=== PATIENT | female | born 2000 | race African-American/Black ===

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

== ENCOUNTER 2021-03-23 03:45 | Emergency (ER) | payer OTHER, SELFPAY ==
[2021-03-23 04:51] VITALS: BP 122/77; PULSE 87; RESP 14; TEMP 36.1; O2SAT 98
--- NOTE | 2021-03-23 06:16 | ED.GENADULT ---
HPI - General Adult General Chief complaint: Upper Respiratory Infection Stated complaint: cough, runny nose Time Seen by Provider: 03/23/21 04:31 History of Present Illness HPI narrative: Patient is a 20-year-old female who presents ER with upper respiratory infection symptoms. Over the last 2 days she has had sinus congestion with cough. No fevers chills or sweats. No known sick contacts. She is not vaccinated against Covid. Her child has similar symptoms. No dyspnea. Related Data Home Medications Medication Instructions Recorded Confirmed PNV cmb#95-ferrous fumarate-FA tablet PO 05/19/20 [ Multivitamins] Allergies Allergy/AdvReac Type Severity Reaction Status Date / Time strawberry Allergy Hives Verified 03/23/21 04:58 Review of Systems Constitutional: Constitutional: Denies chills, Denies fever(s) and Denies weakness ENT: Reports nasal congestion and Denies sore throat Respiratory: Respiratory: Reports cough, Denies dyspnea and Denies wheezing Gastrointestinal: Gastrointestinal: Denies abdominal pain, Denies nausea and Denies vomiting [facility] Past Medical History Medical History (Updated 03/23/21 @ 06:20 by Vincent Robin MD) Healthy female adult Surgical History Surgical History (Updated 05/19/20 @ 22:44 by Vincent Robin MD) No history of previous surgery Social History Social History (Updated 02/23/20 @ 23:40 by Olayinka Castrejon PA-C) Smoking status: Never smoker Gender identity (if verbalized by the patient): Female Sexual Orientation (if Verbalized by the Patient): Straight or Heterosexual Exam Narrative: GENERAL: Well-appearing, well-nourished, and in no acute distress. HEAD: Normocephalic, atraumatic. ENT: Mucous membranes moist. CHEST: Clear to auscultation. No respiratory distress. HEART: Regular rate and rhythm. Normal peripheral pulses. NEURO: Alert and oriented x3. PSYCH: Normal mood and affect. Course Course Emergency Course: Patient swabbed for Covid. Discussed need for isolation until receiving results. Discharge home. Vital Signs Vital signs: Vital Signs Temperature 97 F L 03/23/21 04:51 Pulse Rate 87 03/23/21 04:51 Respiratory Rate 14 03/23/21 04:51 Blood Pressure 122/77 03/23/21 04:51 Pulse Oximetry 98 03/23/21 04:51 Temperature 97 F L 03/23/21 04:51 Pulse Rate 87 03/23/21 04:51 Respiratory Rate 14 03/23/21 04:51 Blood Pressure 122/77 03/23/21 04:51 Pulse Oximetry 98 03/23/21 04:51 Medical Decision Making Vital Signs Vital Signs: Vital Signs Temperature 97 F L 03/23/21 04:51 Pulse Rate 87 03/23/21 04:51 Respiratory Rate 14 03/23/21 04:51 Blood Pressure 122/77 03/23/21 04:51 Pulse Oximetry 98 03/23/21 04:51 Temperature 97 F L 03/23/21 04:51 Pulse Rate 87 03/23/21 04:51 Respiratory Rate 14 03/23/21 04:51 Blood Pressure 122/77 03/23/21 04:51 Pulse Oximetry 98 03/23/21 04:51 Lab Data Labs: Lab Results 03/23/21 Range/Units 05:26 SARS-CoV-2 RNA (RT-PCR) Pending Discharge Plan Discharge Clinical Impression: Person under investigation for COVID-19 Patient Disposition: Home, Self-Care Condition: Stable Instructions: Upper Respiratory Infection (ED), COVID-19 (Coronavirus Disease 2019) (ED) Additional Instructions: Self isolate until you receive a negative Covid result. If it is positive you will need to be cleared from isolation by your primary care doctor or the health department. Return the ER if you cannot breathe, you cannot keep down food or water, or you have additional concerns. Prescriptions: No Action famotidine [Pepcid] 20 mg tablet 20 mg PO BID Qty: 10 RF: 0 prochlorperazine maleate [Compazine] 10 mg tablet 10 mg PO Q8H PRN (Reason: nausea and vomiting) Qty: 7 RF: 0 PNV cmb#95-ferrous fumarate-FA [ Multivitamins] 28 mg iron- 800 mcg tablet PO RF: 0 acetaminophen 500 mg capsule
[2021-03-23 06:42] VITALS: BP 140/80; PULSE 98; RESP 14; O2SAT 99
[2021-03-23 14:05] LABS: SARS-CoV-2 RNA PCR Positive
== END 2021-03-23 06:44 | disposition home or self-care (01) ==
PROVIDERS: Emergency Provider Emergency Medicine
DX: U07.1 COVID-19 (principal)
CPT/HCPCS: 99283; C9803; U0003; U0005

== ENCOUNTER 2021-12-03 15:33 | Emergency (ER) | payer OTHER, SELFPAY ==
[2021-12-03 15:55] VITALS: BP 127/76; PULSE 94; RESP 16; TEMP 36.9; O2SAT 100
--- NOTE | 2021-12-03 15:59 | ED.GENADULT ---
HPI - General Adult General Chief complaint: Abdominal Pain Stated complaint: Abdominal Pain Time Seen by Provider: 12/03/21 15:59 Source: patient, RN notes reviewed and old records reviewed Mode of arrival: ambulatory Limitations: no limitations History of Present Illness HPI narrative: 21-year-old female presents to the [facility] with I just do not feel right. Requesting blood test. Patient denies any abdominal pain. Reports last menstrual period was on 24 November, 9 days ago but states it was not her normal period. Reports that she has taken home test which she reports is negative. Patient states that she has had some nausea without abdominal pain. No chest pain. No urinary symptoms. Related Data Allergies Allergy/AdvReac Type Severity Reaction Status Date / Time strawberry Allergy Hives Verified 12/03/21 15:50 Review of Systems Review of Systems: All systems reviewed & are unremarkable except as noted in HPI and below Constitutional: Constitutional: Reports as per HPI, Denies chills, Reports fatigue and Denies fever(s) Eyes: Eyes: Reports no additional eye complaints ENT: Reports system reviewed and no additional complaints, except as documented Cardiovascular: Cardiovascular: Reports no additional cardiovascular complaints Respiratory: Respiratory: Reports no additional respiratory complaints Gastrointestinal: Gastrointestinal: Reports as per HPI, Denies abdominal pain, Denies diarrhea, Reports nausea and Denies vomiting Musculoskeletal: Musculoskeletal: Reports no additional musculoskeletal complaints Integumentary/Breasts: Skin/Breast: Reports system reviewed and no additional complaints, except as docu Neurologic: Reports system reviewed and no additional complaints, except as documented Psychiatric: Psychiatric: Reports no additional psychiatric complaints Allergic/Immunologic: Allergic/Immunologic: Reports no additional allergic/immunologic complaints [facility] Past Medical History Medical History Healthy female adult Surgical History Surgical History No history of previous surgery Social History Social History Smoking status: Never smoker Gender identity (if verbalized by the patient): Female Sexual Orientation (if Verbalized by the Patient): Straight or Heterosexual Comments At the time of my signature, I reviewed and agree with the nursing past medical, surgical, social, and family history. There is no relevant family history pertinent to the patient complaint. Exam Const: General: healthy appearing, no acute distress and alert Nutritional Appearance: well nourished Orientation/consciousness: patient oriented x3 Limitations: no limitations HENMT: Head: normal to inspection Ears: external ears normal General nose exam: Normal external nose present Face and sinus: normal facial exam Eyes: General: appearance normal, both eyes and all related structures Pupils: Equal, round and reactive pupils present Neck: Neck: normal visual inspection, no lymphadenopathy and no meningeal signs Chest: Chest palpation & inspection: normal inspection of the chest Resp: Effort & Inspection: normal respiratory effort and no use of accessory muscles Auscultation: clear to auscultation bilaterally, no crackles, no rales, no rhonchi and no wheezes Cardio: Rate: regular rate Rhythm: regular rhythm GI: GI Palp: Yes Soft to palpation and No Tenderness to palpation present (GI) Back/Spine/Pelvis: Cervical Spine: normal cervical lordosis Thoracic/Lumbar Spine: thoracic and lumbar spine normal to inspection Skin: General skin exam: normal color Rashes: no rashes Wounds: no wounds Neuro: General: patient oriented x3, moves all extremities, no meningeal signs and no focal motor deficits Cranial nerves: Yes Equal, rou
== END 2021-12-03 16:24 | disposition home or self-care (01) ==
PROVIDERS: Emergency Provider Nurse Practitioner
DX: R11.0 Nausea (principal)
CPT/HCPCS: 99211; G0463

== ENCOUNTER 2021-12-04 15:34 | Emergency (ER) | payer OTHER, SELFPAY ==
--- NOTE | ~2021-12-04 | XR_ITS ---
EXAM: XR abdomen/kub 1V DATE: 12/04/2021 18:10 HISTORY: abd pain, NAUSEA . COMPARISON: None available. FINDINGS: The upper portion of the abdomen is not included in the [id number]. Normal bowel gas pat tern. No organomegaly. No abnormal abdominal calcification. Regional bones and soft tissues normal fo r age. IMPRESSION: Limited [id number]. No radiographic evidence of obstruction or ileus. Reviewed, dictated and finalized at location K. IMPRESSION: Limited [id number]. No radiographic evidence of obstruction or i leus.
[2021-12-04 15:38] VITALS: BP 131/67; PULSE 85; RESP 16; TEMP 37.1; O2SAT 100
--- NOTE | 2021-12-04 16:38 | PC.NURSE ---
patient denies N/V/D and states she wants a blood test to see if she is . patient states she took a test at home and it was negative.
[2021-12-04 17:26] LABS: Basophils Percent Auto 0.5 % (0.2-1.2); Eosinophils Absolute Auto 0.1 K/mm3 (0-0.3); Eosinophils Percent Auto 0.9 % (0-4.4); Hematocrit 39.2 % (37.0-47.0); Hemoglobin 13.3 g/dL (12.0-15.0); Immature Granulocyte Absolute 0.01 K/mm3 (0.00-0.031); Immature Granulocyte Percent A 0.2 % (0-0.5); Lymphocytes Absolute Auto 2.12 K/mm3 (0.9-3.2); Lymphocytes Percent Auto 37.5 % (18.3-44.2); Mean Corpuscular HGB Conc 33.9 g/dl (32-36); Mean Corpuscular Hemoglobin 28.4 pg (26-34); Mean Corpuscular Volume 83.8 fl (80-100); Monocytes Absolute Auto 0.4 K/mm3 (0.1-0.6); Monocytes Percent Auto 7.1 % (2.6-8.5); Neutrophils Percent Auto 53.8 % (45.5-73.1); Platelet Count Result 209 k/mm3 (150-375); Red Blood Count 4.68 M/mm3 (4.2-5.4); Red Cell Distribution Width 12.2 % (11.5-14.5); White Blood Count 5.7 K/mm3 (4.5-10.0)
[2021-12-04 17:27] LABS: Appearance Urine Slightly Cloudy (Clear); Bilirubin Urine Negative (Negative); Blood Urine Negative (Negative); Color Urine Yellow (Yellow); Glucose Urine UA Negative (Negative); Ketones Urine Negative (Negative); Leukocyte Esterase Ur Negative LEU/UL (Negative); Nitrate Urine Negative (Negative); Protein Urine Negative (Negative); Specific Grav Ur 1.025 (1.001-1.035)
[2021-12-04 17:31] LABS: Budding Yeast Urine Present /hpf; Mucus Urine Rare /lpf; RBC Urine 21-50 /hpf (0-2); Squamous Epithelial Cell Urine Few /hpf (Few); WBC Urine 0-3 /hpf
[2021-12-04 17:32] LABS: Add Urine Microscopic? YES
[2021-12-04 17:36] LABS: Alanine Aminotransferase 20 U/L (6-35); Albumin Level 4.7 g/dL (3.5-5.1); Alkaline Phosphatase 73 U/L (38-126); Anion Gap 11 mmol/L (8-16); Aspartate Amino Transferase 23 U/L (14-36); Bilirubin,Total 0.4 mg/dL (0.2-1.3); Blood Urea Nitrogen 12 mg/dL (7-17); Calcium 9.5 mg/dL (8.4-10.2); Carbon Dioxide 25 mmol/L (22-30); Chloride 101 mmol/L (98-107); Estimated CRCL calculation 93 ml/min; Estimated Glomerular Filt Rate > 60; Glucose 101 mg/dL (65-110); Lipase 88 U/L (23-300); Potassium 3.8 mmol/L (3.4-5.0); Sodium 137 mmol/L (137-145)
--- NOTE | 2021-12-04 17:42 | ED.GENADULT ---
HPI - General Adult General Chief complaint: Unspecified Stated complaint: Abd pain with nausea History of Present Illness HPI narrative: 21-year-old female presents emergency room complaints of nausea and abdominal pain for 4 weeks. Patient states there is something moving around in my belly . Patient believes that she is and is requesting a test. She took 2 at home tests prior to arrival and they were both negative. Patient denies any vomiting, diarrhea or constipation. Denies fevers. States her last menstrual period was 10 days ago. Denies vaginal discharge or concerns over STDs. Related Data Allergies Allergy/AdvReac Type Severity Reaction Status Date / Time strawberry Allergy Hives Verified 12/03/21 15:50 Review of Systems Review of Systems: CONSTITUTIONAL: Denies fever, chills, or sweats. EYES: Denies visual changes, redness, or discharge. ENT: Denies rhinorrhea, congestion, sore throat, or otalgia. CARDIOVASCULAR: Denies chest pain, palpitations, or edema. RESPIRATORY: Denies cough or dyspnea. GASTROINTESTINAL: Denies abdominal pain, nausea, vomiting, or diarrhea. GENITOURINARY: Denies dysuria or hematuria. SKIN: Denies rash or itching. MUSCULOSKELETAL: Denies back pain, joint pain, or myalgia. NEUROLOGIC: Denies headache, numbness, dizziness, or weakness. PSYCHIATRIC: Denies anxiety or depression. [facility] Past Medical History Medical History Healthy female adult Surgical History Surgical History No history of previous surgery Social History Social History Smoking status: Never smoker Gender identity (if verbalized by the patient): Female Sexual Orientation (if Verbalized by the Patient): Straight or Heterosexual Exam Narrative: GENERAL: Well-appearing, well-nourished, no physical limitations, and in no acute distress. HEAD: Normocephalic, atraumatic. EYES: Conjunctivae normal, PERRLA and EOMI. CHEST: Clear to auscultation. No respiratory distress. No wheezes rales or rhonchi. No tenderness. HEART: Regular rate and rhythm. No murmur heard. Normal peripheral pulses. ABDOMEN: Soft, nontender, nondistended, normal active bowel sounds. BACK: No CVA tenderness EXTREMITIES: Normal range of motion. No edema. No clubbing or cyanosis SKIN: Warm, dry, no rash. No noted wounds NEURO: No focal deficits. Alert and oriented x3. MAEW. CN's II-XI intact bilaterally, normal gait PSYCH: Cooperative. Normal mood and affect. Course Vital Signs Vital signs: Vital Signs Temperature 37.1 C 12/04/21 15:38 Pulse Rate 85 12/04/21 15:38 Respiratory Rate 16 12/04/21 15:38 Blood Pressure 131/67 12/04/21 15:38 Pulse Oximetry 100 12/04/21 15:38 Oxygen Delivery Room Air 12/04/21 15:38 Temperature 37.1 C 12/04/21 15:38 Pulse Rate 85 12/04/21 15:38 Respiratory Rate 16 12/04/21 15:38 Blood Pressure 131/67 12/04/21 15:38 Pulse Oximetry 100 12/04/21 15:38 Oxygen Delivery Room Air 12/04/21 15:38 Medical Decision Making Vital Signs Vital Signs: Vital Signs Temperature 37.1 C 12/04/21 15:38 Pulse Rate 85 12/04/21 15:38 Respiratory Rate 16 12/04/21 15:38 Blood Pressure 131/67 12/04/21 15:38 Pulse Oximetry 100 12/04/21 15:38 Oxygen Delivery Room Air 12/04/21 15:38 Temperature 37.1 C 12/04/21 15:38 Pulse Rate 85 12/04/21 15:38 Respiratory Rate 16 12/04/21 15:38 Blood Pressure 131/67 12/04/21 15:38 Pulse Oximetry 100 12/04/21 15:38 Oxygen Delivery Room Air 12/04/21 15:38 Lab Data Result diagrams: 12/04/21 17:14 12/04/21 17:14 Labs: Lab Results 12/04/21 12/04/21 12/04/21 Range/Units 17:14 17:14 17:14 WBC 5.7 (4.5-10.0) K/mm3 RBC 4.68 (4.2-5.4) M/mm3 Hgb 13.3 (12.0-15.0) g/dL Hct
[2021-12-04 17:57] LABS: SPREG INTERNAL CONTROL Positive; Serum Qual hCG Negative
== END 2021-12-04 19:10 | disposition home or self-care (01) ==
PROVIDERS: Emergency Provider Nurse Practitioner Family
DX: K59.00 Constipation, unspecified (principal); B37.3 Candidiasis of vulva and vagina; R10.9 Unspecified abdominal pain
CPT/HCPCS: 36415; 74018; 80053; 81001; 83690; 84703; 85025; 99283